=== PATIENT | male | born 1985 | race African-American/Black ===

== ENCOUNTER 2024-07-13 15:49 | Emergency (ER) | payer SELFPAY ==
[~2024-07-13] VITALS: Ht 182.9 cm; Wt 73.0 kg
[2024-07-13 15:53] VITALS: BP 128/70; PULSE 68; RESP 18; TEMP 36.9; O2SAT 97
[2024-07-13] MEDS: KETOROLAC 30MG/ML VIAL IM STA (19:12)
[2024-07-13] MEDS: ACETAMINOPHEN 325MG TABLET PO STA (19:12)
[2024-07-13 19:14] LABS: BASOPHILS % 1.2 % (0.0-2.0); EOSINOPHILS % 5.3 % (0.0-5.0); HEMATOCRIT. 45.3 % (42.0-52.0); MEAN CORPUSCULAR HEMOGLOBIN 30.9 pg (28.0-32.0); MEAN CORPUSCULAR HGB CONC 33.1 g/dL (31.0-37.0); MEAN CORPUSCULAR VOLUME 93.4 fL (80.0-94.0); MEAN PLATELET VOLUME 8.4 fl (7.4-10.4); MONOCYTES % 6.7 % (2.0-8.0); NEUTROPHILS % 49.8 % (40.0-76.0); PLATELET 180 x1000/uL (130-400); RED BLOOD CELL COUNT 4.84 mill/uL (4.7-6.1); RED CELL DISTRIBUTION WIDTH 13.8 % (11.6-14.6); WHITE BLOOD COUNT 6.5 x1000/uL (4.5-11.0)
[2024-07-13 19:20] LABS: POTASSIUM 3.9 mEq/L (3.5-5.1)
[2024-07-13 19:26] LABS: CREATININE 1.8 mg/dL (0.6-1.3)
[2024-07-13] MEDS ORDERED: LIDO700A30 TP (21:19)
[2024-07-13] MEDS ORDERED: CYCL10TA21 MT (21:19)
== END 2024-07-13 21:39 | disposition home or self-care (01) ==
LOC: ER 15:49
DX: S80.212A Abrasion, left knee, initial encounter (principal); S09.90XA Unspecified injury of head, initial encounter; H65.01 Acute serous otitis media, right ear; Q61.3 Polycystic kidney, unspecified; M54.2 Cervicalgia; V43.52XA Car driver injured in collision with other type car in traffic accident, initial encounter; Y93.89 Activity, other specified; Y92.410 Unspecified street and highway as the place of occurrence of the external cause; Y99.8 Other external cause status
CPT/HCPCS: 99285; 70450; 80048; 85025; 36415; 73030; 72125; 96372; J1885